=== PATIENT | male | born 1995 ===

== ENCOUNTER 2022-09-27 09:26 | Outpatient (CLI) | payer OTHER | END 2022-09-27 09:33 | disposition home or self-care (01) | LOC: RAD 09:26 | PROVIDERS: ATTEND Specialist | DX: I10 Essential (primary) hypertension (principal) ==

== ENCOUNTER → 2023-01-13 | Outpatient (CLI) | payer OTHER | END | disposition home or self-care (01) | LOC: LAB 04:55 | PROVIDERS: ATTEND Obstetrics & Gynecology | DX: Z20.828 Contact with and (suspected) exposure to other viral communicable diseases (principal); Z20.818 Contact with and (suspected) exposure to other bacterial communicable diseases ==